=== PATIENT | male | born 1990 | race Caucasian/White ===

== ENCOUNTER 2016-06-03 19:24 | Emergency (ER) | payer SELFPAY ==
--- NOTE | 2016-06-03 22:46 | DIAGNOSTIC IMAGING REPORT ---
PROCEDURE: XR CHEST 1 VIEW INDICATION: SYNCOPE TECHNIQUE: Portable AP view (2109 hours). COMPARISON: None. FINDINGS: Allowing for overlying wires and electrodes, lungs are clear. Heart and mediastinum are normal. Thorax is normal. IMPRESSION: 1. Negative chest.
--- NOTE | 2016-06-03 22:58 | ED ORDER SUMMARY ---
..... Patient: MAG LOOMIS OrderSheet [facility] VisitID: [id number] [address] [place] [address] 26y, M Registration Date/Time: 06/03/2016 ORDER SHEET Weight: 68.0 kg (stated) Allergies: No Known Drug Allergy GENERAL ORDERS: Primary Care Md (Continuous) (Syncope ) (20:44 06/03/2016 HSoule per protocol) (20:45 HSoule) Pulse oximeter (20:44 06/03/2016 HSoule per protocol) (20:45 HSoule) EKG - ER Stat (20:44 06/03/2016 HSoule per protocol) (20:50 NHouse ER Tech1) POC Glucose (:06/03/2016 HSoule per protocol) (20:53 HSoule) Chest 1V Urgent (21:06/03/2016 HBivens A.R.N.P.) (21:27 MCampbell) CBC w Diff Urgent (21:06/03/2016 HBivens A.R.N.P.) (Ack 21:10 HSoule) (21:40 NHouse ER Tech1) BMP Urgent (21:06/03/2016 HBivens A.R.N.P.) (Ack 21:11 HSoule) (21:40 NHouse ER Tech1) BNP Urgent (21:06/03/2016 HBivens A.R.N.P.) (Ack 21:11 HSoule) (21:40 NHouse ER Tech1) CPK Urgent (21:06/03/2016 HBivens A.R.N.P.) (Ack 21:11 HSoule) (21:40 NHouse ER Tech1) Troponin-I Urgent (:06/03/2016 HBivens A.R.N.P.) (Ack 21:11 HSoule) (21:40 NHouse ER Tech1) MEDICATION ORDERS: IV FLUIDS: IV Saline Lock (20:44 06/03/2016 HSoule per protocol) (Ack 20:45 HSoule) (20:53 HSoule) IV NS : initial bolus 1000 mL (1000 mL/hr), then none - (NOW) (21:08 06/03/2016 HBivens A.R.N.P.) (Ack 21:10 HSoule) (21:26 HSoule) ORDER SHEET NOTES: [Electronically signed by Leonila Cano.R.N.P. (23:29 06/03/2016)] [Electronically signed by Chana Salazar (23:58 06/03/2016)] [Electronically locked/signed by Chana Salazar (23:58 06/03/2016)]
--- NOTE | 2016-06-03 22:58 | ED NURSING NOTES ---
Clinical Report - Nurses [facility] [address] [place] [address] 06/03/2016 19:27 Patient: MAG LOOMIS TRIAGE Triage time 20:37 Jun 03 2016. Acuity: LEVEL 3. Chief Complaint: DIZZINESS and (Syncopal episodes, bilateral foot swelling). LATASHA COMA SCORE: [place] Coma Scale: 15- eyes open spontaneously (4); best verbal response- oriented x 4 (5); best motor response- obeys commands (6). --20:42 Chana Salazar 20:37 06/03/16. BP: 135/91. HR: 115. RR: 20. O2 saturation: 98% on room air. Temp: 98.1 F (oral). Pain level now: 0/10. --20:42 Chana Salazar. Weight: 68 kg stated. Height/Length: 73 inches Per Patient. BMI: 19.8. --20:39 Chana Salazar. Medications None. --20:38 Chana Salazar. Medication/allergy information source: the patient. --20:42 Chana Salazar. Allergies No Known Drug Allergy. --20:38 Chana Salazar. History Arrived by private vehicle. Historian: patient. Accompanied by friend. Primary physician (none). This started Since summer, swelling in feet started today. ( Patient states he has been having some episodes where he gets dizzy and passes out. He states that he checked his blood sugar and it was 23 mg/dl. He states that he noticed today that he has swollen feet. He denies any known health problems). PAST MEDICAL HX: Immunizations: status is unknown. SOCIAL HX: Light tobacco smoker (cigarette)- less than 1/2 a pack per day. Regular alcohol use. History of drug use: marijuana. No infectious disease exposure. FALL RISK ASSESSMENT: Fall risk assessment completed. No fall risk identified. NUTRITIONAL RISK ASSESSMENT: The nutritional risk assessment revealed no deficiencies. FUNCTIONAL ASSESSMENT: Functional assessment: no impairments noted. LEARNING NEEDS ASSESSMENT: The learning needs assessment revealed no barriers. SKIN INTEGRITY ASSESSMENT: Skin integrity risk assessment completed. No skin integrity risk identified. --20:42 Chana Salazar. PROBLEMS: no known problems. ADDITIONAL SURGERIES: Appendectomy. --20:39 Chana Salazar. Interventions ID band on patient. To treatment room. --20:42 Chana Salazar. PHYSICAL ASSESSMENT 20:43 06/03/16. Ambulatory to room. GENERAL / NEURO / PSYCH: Oriented X 4. Appears in no acute distress. Alert. Speech within normal limits. RESPIRATORY: Respirations not labored. CVS: Cardiac rhythm: sinus tachycardia; (113). SKIN: Skin is warm and dry. --20:43 Chana Salazar. NURSING PROGRESS NOTES substation manager, pulse oximeter and NIBP monitor placed on patient; monitor alarms on. Patient gowned. Reassurance given to the patient. Two patient identifiers checked. Call light placed in reach. Side rails up x 1. Bed placed in lowest position. Patient ready for evaluation- chart flagged. --20:43 Chana Salazar ( Patient states he feels like he is floating.). --20:44 Chana Salazar 20:48. EKG was performed by a tech and shown to the ED physician. --20:51 Stacey Reeder ER Tech1 20:51. Finger stick glucose: 121 mg/dL. --20:51 Stacey Reeder ER Tech1 20:53 06/03/2016 Site #1 started via IV in the right antecubital space with an 20g angiocath; one attempt. Blood drawn: rainbow set. Labeled in the presence of the patient and sent to the lab. Saline lock flushed with 10 mL saline. --20:53 Chana Salazar Patient ID band checked for patient name and birthdate: patient confirmed. Blood samples drawn from the right antecubital space peripheral IV site by nurse ; labeled in presence of the patient and sent to lab: rainbow set. Additional blood sent to lab. Line flushed with 10 mL normal saline post blood draw. --20:56 Chana Salazar 21:05 06/03/16. BP: 138/87. HR: 107. RR: 20. O2 saturation: 99% on room air. --21:05 Chana Salazar ( Radiology at bedside). --21:19 Chana Salazar 21:21 06/03/2016 Started bag #1 1000 mL IV Fluids IV NS (Saline); at 1000 mL/hr over 1 hour(s) via site #1. Allergies verified and confirmed 5 rights. IV patency established. IV site checked: no pain, redness, or swelling. IV flushed thoroughly pre- and post-medication administration. --21:26 Chana Salazar 22:08 06/03/16. BP: 129/78. HR: 95. RR: 20. O2 saturation: 100% on room air. --22:08 Chana Salazar 22:42 06/03/16. BP: 132/80. HR: 95. RR: 20. O2 saturation: 100% on room air. Pain level now: 0/10. --22:43 Chana Salazar 22:21 06/03/2016 IV Fluids IV NS Discontinued: bag #1 completed. Total amount infused: 1000 mL. IV patency established. IV site checked: no pain, redness, or swelling. IV flushed thoroughly. --22:43 Chana Salazar. DISPOSITION / DISCHARGE 23:15 06/03/16. Condition at departure: stable. No learning barriers present. Discharge instructions provided and reviewed with epic cupid analyst and the patient. Patient and epic cupid analyst verbalized understanding. Written instructions provided in Yakut. ( Follow up with PCP in three days. [facility] information given. Return if symptoms persist or worsen.). The patient was discharged by the physician carpenter assistant. He was discharged home and accompanied by epic cupid analyst. He left the Emergency Department ambulatory and via private vehicle. [employer] Teacher driving. --23:51 Chana Salazar 23:15 06/03/16. BP: 128/77. HR: 94. RR: 18. O2 saturation: 100% on room air. Temp: deferred. Pain level now: 0/10. --23:51 Chana Salazar 23:15 06/03/2016 Site #1 removed upon discharge. Catheter intact. Bandaid applied. --23:57 Chana Salazar. Locked/Released at 06/03/2016 23:58 by Chana Salazar,
--- NOTE | 2016-06-03 22:58 | ED ORDER SUMMARY ---
..... Patient: MAG LOOMIS OrderSheet [facility] VisitID: [id number] [address] [place] [address] 26y, M Registration Date/Time: 06/03/2016 ORDER SHEET Weight: 68.0 kg (stated) Allergies: No Known Drug Allergy GENERAL ORDERS: Post Splitter (Continuous) (Syncope ) (20:44 06/03/2016 HSoule per protocol) (20:45 HSoule) Pulse oximeter (20:44 06/03/2016 HSoule per protocol) (20:45 HSoule) EKG - ER Stat (20:44 06/03/2016 HSoule per protocol) (20:50 NHouse ER Tech1) POC Glucose (:06/03/2016 HSoule per protocol) (20:53 HSoule) Chest 1V Urgent (21:06/03/2016 HBivens A.R.N.P.) (21:27 MCampbell) CBC w Diff Urgent (21:06/03/2016 HBivens A.R.N.P.) (Ack 21:10 HSoule) (21:40 NHouse ER Tech1) BMP Urgent (21:06/03/2016 HBivens A.R.N.P.) (Ack 21:11 HSoule) (21:40 NHouse ER Tech1) BNP Urgent (21:06/03/2016 HBivens A.R.N.P.) (Ack 21:11 HSoule) (21:40 NHouse ER Tech1) CPK Urgent (21:06/03/2016 HBivens A.R.N.P.) (Ack 21:11 HSoule) (21:40 NHouse ER Tech1) Troponin-I Urgent (:06/03/2016 HBivens A.R.N.P.) (Ack 21:11 HSoule) (21:40 NHouse ER Tech1) MEDICATION ORDERS: IV FLUIDS: IV Saline Lock (20:44 06/03/2016 HSoule per protocol) (Ack 20:45 HSoule) (20:53 HSoule) IV NS : initial bolus 1000 mL (1000 mL/hr), then none - (NOW) (21:08 06/03/2016 HBivens A.R.N.P.) (Ack 21:10 HSoule) (21:26 HSoule) ORDER SHEET NOTES: [Electronically signed by Leonila Cano.R.N.P. (23:29 06/03/2016)] [Electronically signed by Chana Salazar (23:58 06/03/2016)] [Electronically locked/signed by Chana Salazar (23:58 06/03/2016)]
--- NOTE | 2016-06-03 22:58 | ED NURSING NOTES ---
Clinical Report - Nurses [facility] [address] [place] [address] 06/03/2016 19:27 Patient: MAG LOOMIS TRIAGE Triage time 20:37 Jun 03 2016. Acuity: LEVEL 3. Chief Complaint: DIZZINESS and (Syncopal episodes, bilateral foot swelling). LATASHA COMA SCORE: [place] Coma Scale: 15- eyes open spontaneously (4); best verbal response- oriented x 4 (5); best motor response- obeys commands (6). --20:42 Chana Salazar 20:37 06/03/16. BP: 135/91. HR: 115. RR: 20. O2 saturation: 98% on room air. Temp: 98.1 F (oral). Pain level now: 0/10. --20:42 Chana Salazar. Weight: 68 kg stated. Height/Length: 73 inches Per Patient. BMI: 19.8. --20:39 Chana Salazar. Medications None. --20:38 Chana Salazar. Medication/allergy information source: the patient. --20:42 Chana Salazar. Allergies No Known Drug Allergy. --20:38 Chana Salazar. History Arrived by private vehicle. Historian: patient. Accompanied by friend. Primary physician (none). This started Since summer, swelling in feet started today. ( Patient states he has been having some episodes where he gets dizzy and passes out. He states that he checked his blood sugar and it was 23 mg/dl. He states that he noticed today that he has swollen feet. He denies any known health problems). PAST MEDICAL HX: Immunizations: status is unknown. SOCIAL HX: Light tobacco smoker (cigarette)- less than 1/2 a pack per day. Regular alcohol use. History of drug use: marijuana. No infectious disease exposure. FALL RISK ASSESSMENT: Fall risk assessment completed. No fall risk identified. NUTRITIONAL RISK ASSESSMENT: The nutritional risk assessment revealed no deficiencies. FUNCTIONAL ASSESSMENT: Functional assessment: no impairments noted. LEARNING NEEDS ASSESSMENT: The learning needs assessment revealed no barriers. SKIN INTEGRITY ASSESSMENT: Skin integrity risk assessment completed. No skin integrity risk identified. --20:42 Chana Salazar. PROBLEMS: no known problems. ADDITIONAL SURGERIES: Appendectomy. --20:39 Chana Salazar. Interventions ID band on patient. To treatment room. --20:42 Chana Salazar. PHYSICAL ASSESSMENT 20:43 06/03/16. Ambulatory to room. GENERAL / NEURO / PSYCH: Oriented X 4. Appears in no acute distress. Alert. Speech within normal limits. RESPIRATORY: Respirations not labored. CVS: Cardiac rhythm: sinus tachycardia; (113). SKIN: Skin is warm and dry. --20:43 Chana Salazar. NURSING PROGRESS NOTES artistic associate, pulse oximeter and NIBP monitor placed on patient; monitor alarms on. Patient gowned. Reassurance given to the patient. Two patient identifiers checked. Call light placed in reach. Side rails up x 1. Bed placed in lowest position. Patient ready for evaluation- chart flagged. --20:43 Chana Salazar ( Patient states he feels like he is floating.). --20:44 Chana Salazar 20:48. EKG was performed by a tech and shown to the ED physician. --20:51 Stacey Reeder ER Tech1 20:51. Finger stick glucose: 121 mg/dL. --20:51 Stacey Reeder ER Tech1 20:53 06/03/2016 Site #1 started via IV in the right antecubital space with an 20g angiocath; one attempt. Blood drawn: rainbow set. Labeled in the presence of the patient and sent to the lab. Saline lock flushed with 10 mL saline. --20:53 Chana Salazar Patient ID band checked for patient name and birthdate: patient confirmed. Blood samples drawn from the right antecubital space peripheral IV site by nurse ; labeled in presence of the patient and sent to lab: rainbow set. Additional blood sent to lab. Line flushed with 10 mL normal saline post blood draw. --20:56 Chana Salazar 21:05 06/03/16. BP: 138/87. HR: 107. RR: 20. O2 saturation: 99% on room air. --21:05 Chana Salazar ( Radiology at bedside). --21:19 Chana Salazar 21:21 06/03/2016 Started bag #1 1000 mL IV Fluids IV NS (Saline); at 1000 mL/hr over 1 hour(s) via site #1. Allergies verified and confirmed 5 rights. IV patency established. IV site checked: no pain, redness, or swelling. IV flushed thoroughly pre- and post-medication administration. --21:26 Chana Salazar 22:08 06/03/16. BP: 129/78. HR: 95. RR: 20. O2 saturation: 100% on room air. --22:08 Chana Salazar 22:42 06/03/16. BP: 132/80. HR: 95. RR: 20. O2 saturation: 100% on room air. Pain level now: 0/10. --22:43 Chana Salazar 22:21 06/03/2016 IV Fluids IV NS Discontinued: bag #1 completed. Total amount infused: 1000 mL. IV patency established. IV site checked: no pain, redness, or swelling. IV flushed thoroughly. --22:43 Chana Salazar. DISPOSITION / DISCHARGE 23:15 06/03/16. Condition at departure: stable. No learning barriers present. Discharge instructions provided and reviewed with dog barber and the patient. Patient and dog barber verbalized understanding. Written instructions provided in Setswana. ( Follow up with PCP in three days. [facility] information given. Return if symptoms persist or worsen.). The patient was discharged by the physician assistant curator. He was discharged home and accompanied by dog barber. He left the Emergency Department ambulatory and via private vehicle. Payroll Bookkeeper driving. --23:51 Chana Salazar 23:15 06/03/16. BP: 128/77. HR: 94. RR: 18. O2 saturation: 100% on room air. Temp: deferred. Pain level now: 0/10. --23:51 Chana Salazar 23:15 06/03/2016 Site #1 removed upon discharge. Catheter intact. Bandaid applied. --23:57 Chana Salazar. Locked/Released at 06/03/2016 23:58 by Chana Salazar,
--- NOTE | 2016-06-03 22:58 | ED CLINICAL REPORT ---
Clinical Report - Physicians/Mid Levels [facility] [address] [place] [address] 06/03/2016 19:27 Patient: MAG LOOMIS Time Seen: 2100. Arrived- By private vehicle. Historian- patient. HISTORY OF PRESENT ILLNESS Chief Complaint: MULTIPLE SYNCOPAL EPISODES. Is no longer unconscious. He has recovered. This occurred years ago. The patient lost consciousness and collapsed. The patient had preceding symptoms of light-headedness and warmth. No preceding symptoms of chest pain or abdominal pain. Experienced repeated episodes. The episode was brief and lasted seconds. Currently he has no symptoms. No injuries noted. Similar symptoms previously: Chronically, as bad. ( says he has passed out several times, and it started a few years ago, never went to dr, recently passed out again). Recent medical care: Not recently seen/assessed. REVIEW OF SYSTEMS No headache, dizziness, weakness, chest pain or palpitations. No abdominal pain, vomiting, diarrhea, numbness or fever. c/o b feet swelling, intermittently. All systems otherwise negative, except as recorded above. PAST HISTORY See nurses notes. ( PROBLEMS: no known problems. ADDITIONAL SURGERIES: Appendectomy. --20:39 Chana Salazar.). SOCIAL HISTORY Light tobacco smoker. Occasional alcohol use. History of occasional drug use: marijuana. No recent travel. Is a local resident. FAMILY HISTORY History of seizure disorder. ADDITIONAL NOTES The nursing notes have been reviewed with agreement regarding the chief complaint, HPI, ROS, PMH and patient medications and allergies. PHYSICAL EXAM Vital Signs: 06/03/2016 20:37 BP: 135/91. HR: 115. RR: 20. O2 saturation: 98%. Temp: 98.1 F. Pain level now: 0/10. Have been reviewed as abnormal and appear to be correct. Blood pressure normal. Tachycardic. Respiratory rate normal. Temperature normal. Oxygen saturation normal. Appearance: Alert. No acute distress. Eyes: Pupils equal, round and reactive to light. No nystagmus. Extraocular movements normal. ENT: Normal ENT inspection. TM's normal. Moist mucous membranes. Pharynx normal. Neck: Normal inspection. Neck supple. CVS: Heart rate / rhythm abnormal. Tachycardia (ventricular rate = 110). Heart sounds normal. Pulses normal. Respiratory: No respiratory distress. Breath sounds normal. Abdomen: Soft and nontender. No organomegaly. Back: Normal inspection. Skin: Skin warm and dry. Normal skin color. No rash. Normal skin turgor. Extremities: Extremities exhibit normal ROM. No lower extremity edema. Neuro: Alert. Oriented X 3. Mood/affect normal. Speech normal. Cranial nerves normal (as tested). No cerebellar findings. No motor deficit. No sensory deficit. LABS, X-RAYS, AND EKG EKG: EKG time: (2047). No acute process. No acute ischemia. Normal EKG. Regular narrow-complex tachycardia (108). Sinus tachycardia. Normal EKG. interpreted by dr salinas and reviewed by me. The EKG appears to be a good tracing. Interpretation time: 2112. Chest X-ray: Normal Chest X-Ray. (IMPRESSION: 1. Negative chest. Electronically Final signed by:Chaka Irwin MD 06/03/2016 10:44:47 PM). The X-rays were interpreted by the radiologist and contemporaneously by me. Laboratory Tests: CBC w Diff: (KRISTEN: 06/03/2016 20:50) ( MsgRcvd 06/03/2016 21:19) Final results Test Result Flag Units (Reference) WHITE BLOOD COUNT 11.5 K/uL (4.5-11.5) RED BLOOD COUNT 5.09 M/uL (4.50-5.90) HEMOGLOBIN 14.6 gm/dL (13.5-17.5) HEMATOCRIT 45.6 % (41.0-53.0) MEAN CELL VOLUME 90 fL (80-100) MEAN CORPUSCULAR HGB 29 pg (26-34) MEAN CORPUSCULAR HGB CONC 32 g/dL (31-37) RED CELL DISTRIBUTION WIDTH 12.8 % (11.6-14.8) PLATELET COUNT 333 K/uL (150-400) NEUTROPHIL % 61.4 % (50-75) LYMPH % 30.2 % (25-40) MONO % 6.6 % (3-14) EOSINOPHIL % 1.4 % (0-4) BASOPHIL % 0.4 % (0-2) BNP: (KRISTEN: 06/03/2016 20:50) ( MsgRcvd 06/03/2016 21:36) Final results Test Result Flag Units (Reference) B-TYPE NATRIURETIC PEPTIDE < 5.0 L pg/ml (5-100) BMP: (KRISTEN: 06/03/2016 20:50) ( MsgRcvd 06/03/2016 21:32) Final results Test Result Flag Units (Reference) GLUCOSE 116 H mg/dL (70-110) BUN 15 mg/dL (7-18) CREATININE 1.0 mg/dL (0.6-1.3) Estimated GFR >60 mL/min Estimated GFR- >60 mL/min Note: Persistent reduction over 3 months in eGFR<60 mL/min/1.73 m2 defines CKD. Patients with eGFR values>=60 mL/min/1.73 m2 may also have CKD if evidence ofpersistent proteinuria. Additional information may be foundat www.kidney.org. SODIUM 140 mmol/L (136-145) POTASSIUM 3.9 mmol/L (3.5-5.1) CHLORIDE 102 mmol/L (98-107) CARBON DIOXIDE 31 mmol/L (21-32) CALCIUM 8.9 mg/dL (8.5-10.1) CPK 193 U/L (24-260) TROPONIN I <0.05 L ng/mL (0.00-1.5) TROPONIN REFERENCE RANGE:<0.1 NEGATIVE0.1-1.5 INDETERMINANT>1.5 POSITIVE . Bedside Tests: Glucose normal - 20:51. Finger stick glucose: 121 mg/dL. --20:51 McQuoid, Stacey, ER Tech1 (performed at bedside). PROGRESS AND PROCEDURES Patient counseled in person regarding the patient's stable condition, test results and diagnosis. 22:56. Differential Diagnosis: I considered situational stimulus, defecation, cough, sneezing, swallowing, cardiac sinus hypersensitivity, prolonged recumbancy, sudden postural change, prolonged standing, hypovolemia, vasodilator drugs, adrenal insufficiency, arrhythmia, heart block, myocardial infarction, idiopathic hypertrophic subaortic stenosis, aortic stenosis, left ventricular dysfunction, seizure, hypoxia and hypoglycemia as a possible cause of syncope in this patient. This is a partial list of diagnoses considered. Above considerations are based on history, physical exam, laboratory data, X-Ray data, EKG and other information. Differential diagnosis was discussed with patient. Disposition: Discharged home in good and improved condition (22:58). Condition: good and stable. CLINICAL IMPRESSION Syncope of unknown cause .12 lead EKG performed. INSTRUCTIONS Warnings: GENERAL WARNINGS: Return or contact your physician immediately if your condition worsens or changes unexpectedly, if not improving as expected, or if other problems arise. SPECIFICALLY, return if you develop chest pain, neck pain, jaw pain, shoulder pain, arm pain, back pain, fluttering sensation in your chest, lightheadedness, fainting, numbness, weakness or extreme fatigue. Follow-up: Follow up with your doctor in about three days even if well. Call for an appointment. Summary of care provided to patient. Understanding of the discharge instructions verbalized by patient. (Electronically signed by Leonila Cano A.R.N.P. 06/03/2016 23:29)
--- NOTE | 2016-06-03 23:58 | ED MED RECONCILIATION SUMMARY ---
Patient: MAG LOOMIS Medication Reconciliation Report [facility] VisitID: [id number] [address] [place] [address] 26y, M Registration Date/Time: 06/03/2016 Weight: 68.0 kg Height/Length: 73 in. BMI: 19.8 ALLERGIES: No Known Drug Allergy The patient's Home Medications are listed below: NONE. The source(s) of the original Home Medication information: patient The following Medications were given to the patient in the Emergency Department: IV NS IV Fluids bolus 0, then 1000 mL/hr, administered: 06/03/2016 9:21:00 PM The following Medications were prescribed to the patient: None.
--- NOTE | 2016-06-03 23:58 | ED MED RECONCILIATION SUMMARY ---
Patient: MAG LOOMIS Medication Reconciliation Report [facility] VisitID: [id number] [address] [place] [address] 26y, M Registration Date/Time: 06/03/2016 Weight: 68.0 kg Height/Length: 73 in. BMI: 19.8 ALLERGIES: No Known Drug Allergy The patient's Home Medications are listed below: NONE. The source(s) of the original Home Medication information: patient The following Medications were given to the patient in the Emergency Department: IV NS IV Fluids bolus 0, then 1000 mL/hr, administered: 06/03/2016 9:21:00 PM The following Medications were prescribed to the patient: None.
--- NOTE | 2016-06-03 23:58 | ED MAR SUMMARY ---
..... Medication Administration Record [facility] [address] [place] [address] Patient: MAG LOOMIS Visit ID: [id number] 26y, M Weight: 68.0 kg Height/Length: 73 in BMI: 19.8 ALLERGIES: No Known Drug Allergy Start 21:06/03/2016 Chana Salazar,, Stop 22:06/03/2016 Chana Salazar, Medication Administered: IV NS (SALINE), Dose: IV Fluids over 1 hour(s), Rate: 1000 mL/hr, Dispensed: 1000 mL bag, Site: #1 right AC. Medication Ordered: IV NS : initial bolus 1000 mL (1000 mL/hr), then none - (NOW).
--- NOTE | 2016-06-03 23:58 | ED MAR SUMMARY ---
..... Medication Administration Record [facility] [address] [place] [address] Patient: MAG LOOMIS Visit ID: [id number] 26y, M Weight: 68.0 kg Height/Length: 73 in BMI: 19.8 ALLERGIES: No Known Drug Allergy Start 21:06/03/2016 Chana Salazar,, Stop 22:06/03/2016 Chana Salazar, Medication Administered: IV NS (SALINE), Dose: IV Fluids over 1 hour(s), Rate: 1000 mL/hr, Dispensed: 1000 mL bag, Site: #1 right AC. Medication Ordered: IV NS : initial bolus 1000 mL (1000 mL/hr), then none - (NOW).
--- NOTE | 2016-06-03 23:58 | ED DISCHARGE INSTRUCTIONS ---
Patient: MAG LOOMIS General Instructions [facility] VisitID: [id number] [place] [address] 26y, M Registration Date/Time: 06/03/2016 Syncope of unknown cause .12 lead EKG performed. INSTRUCTIONS Warnings: GENERAL WARNINGS: Return or contact your physician immediately if your condition worsens or changes unexpectedly, if not improving as expected, or if other problems arise. SPECIFICALLY, return if you develop chest pain, neck pain, jaw pain, shoulder pain, arm pain, back pain, fluttering sensation in your chest, lightheadedness, fainting, numbness, weakness or extreme fatigue. Follow-up: Follow up with your doctor in about three days even if well. Call for an appointment. Summary of care provided to patient. Understanding of the discharge instructions verbalized by patient. ADDITIONAL INFORMATION Fainting:Uncertain Cause Fainting (syncope) is a temporary loss of consciousness ("passing out"). It occurs when blood flow to the brain is reduced. Near-fainting ("near-syncope") is very similar to fainting, but you do not fully "pass out". The common minor causes of fainting include: sudden fear, pain, nausea, emotional stress and overexertion. Suddenly standing up after sitting or lying for a long time can also cause fainting. The more serious causes for fainting are due to either a very slow or very fast or very slow heart beat ("arrhythmia"), other types of heart disease, dehydration, blood loss, seizure, stroke or ruptured blood vessel in the brain. Taking too much high blood pressure medicine can also cause low blood pressure and fainting. The exact cause of your episode is not certain. However, the tests today did not show any of the serious causes of fainting. Sometimes further testing is needed to find out if a serious problem exists. Therefore, it is important that you follow-up with your doctor as advised. Home Care: 1) Rest today. You may resume your normal activities when you are feeling back to normal. It is best to remain with someone who can check on you for the next 24 hours to watch for another episode of fainting. 2) If you become light-headed or dizzy, lie down immediately or sit with your head between your knees. 3) Because we do not know the exact cause of your near fainting spell, it is possible for another spell to occur without warning. Therefore, do not drive a car or operate dangerous equipment, do not take a bath alone (use a shower instead) and do not swim alone until your doctor says that you are no longer in danger of having another fainting spell. Follow Up with your doctor as advised. Get Prompt Medical Attention if any of the following occur: -- Another fainting spell occurs, which is not explained by the common causes listed above -- Chest, arm, neck, jaw, back or abdominal pain -- Shortness of breath -- Severe headache or seizure -- Blood in vomit, stools (black or red color) -- Unexpected vaginal bleeding -- Palpitations (very rapid or very slow or irregular heart beat) -- Signs of stroke: Weakness of an arm or leg or one side of the face Difficulty with speech or vision Extreme drowsiness, confusion, dizziness or fainting You have been given the following additional information: Syncope, Unk Cause (Electronically signed by Leonila Cano A.R.N.P. 06/03/2016 23:29)
== END 2016-06-03 23:15 | disposition home or self-care (01) ==
LOC: ED SRH 19:24
DX: R55 Syncope and collapse (principal); F17.210 Nicotine dependence, cigarettes, uncomplicated
CPT/HCPCS: 90047; 90098; 90616; 91320; 92610; 95059